=== PATIENT | male | born 1950 | race Caucasian/White ===

== ENCOUNTER 2018-08-25 08:13 | Emergency (ER) | payer MEDICARE ==
--- NOTE | 2018-08-25 08:31 | UC ---
Bite Injury/Animal HPI - HPI Summary HPI Summary: 68 y/o male presents to the urgent care c/o dog bite on the tip of the left index finger since yesterday around 1800pm Pt reports he was taking a walk and He decided to pet a neighbors dog and he bit him on his left index finger. He gave all immunization records to his . Dog is UTD w/ rabies vaccines which expires on 2019. Pt states he irrigated well his finger w/ hydrogen Peroxide and applied triple antibiotic. Pain today is 3/10 and he can move finger w/o any problem. Pt denies fever, SOB, dizziness, chest pain, abdominal pain, N/V/ D. He has not taken his BP medication yet today. - History of Current Complaint Stated Complaint: DOG BITE TO LEFT HAND Time Seen by Provider: 08/25/18 08:28 Hx Obtained From: Patient Severity Currently: Moderate Severity Initially: Moderate Pain Intensity: 3 Pain Scale Used: 0-10 Numeric Onset/Duration: Sudden Onset, Lasting Hours - 14 hrs Type of Bite: Animal - dog Has Animal Been Immunized?: Yes Character: Abrasion/Laceration - tip of left index finger superficial laceration Aggravating Factor(s): Other - touch Alleviating Factor(s): Rest Associated Signs And Symptoms: Positive: Negative. Negative: Fever, Erythema, Drainage, Numbness/Tingling, Limited ROM Hx of Bite: Unprovoked Animal Available for Observation: Yes Animal Control Notified: No - Risk Factors Infection/Sepsis Risk Factors: Negative - Allergies/Home Medications Allergies/Adverse Reactions: Allergies Allergy/AdvReac Type Severity Reaction Status Date / Time No Known Allergies Allergy Verified 08/25/18 08:33 PMH/Surg Hx/FS Hx/Imm Hx Previously Healthy: Yes - Pt denies PMHX - Family History Known Family History: Positive: Hypertension - Social History Occupation: Retired Lives: With Family - Immunization History Hx Tetanus, Diphtheria Vaccination: No - Pt is not UTD w/ Tetanus Review of Systems All Other Systems Reviewed And Are Negative: Yes Constitutional: Positive: Negative Skin: Positive: Other - dog bite in the left index finger Eyes: Positive: Negative ENT: Positive: Negative Respiratory: Positive: Negative Cardiovascular: Positive: Negative Gastrointestinal: Positive: Negative Genitourinary: Positive: Negative Motor: Positive: Negative Neurovascular: Positive: Negative Musculoskeletal: Positive: Other: - left index finger pain s/p dog bite Neurological: Positive: Negative Psychological: Positive: Negative Is Patient Immunocompromised?: No Physical Exam - Summary Physical Exam Summary: Vital Signs Reviewed: Yes General: well appearing, well nourished male in no acute apparent pain distress , sitting comfortably on examining table Eye Exam: Normal Eyes: Positive: Conjunctiva Clear - PERRLA< EOMI, fundi grossly normal ENT: Positive: Normal ENT inspection, Hearing grossly normal, Pharynx normal, TMs normal Neck: Positive: Supple, Nontender, No Lymphadenopathy Respiratory: Positive: Chest non-tender, Lungs clear, Normal breath sounds, No respiratory distress Cardiovascular: Positive: RRR, No Murmur, Pulses Normal, Brisk Capillary Refill Abdomen Description: Positive: Nontender, No Organomegaly, Soft. Negative: CVA Tenderness (R), CVA Tenderness (L) Bowel Sounds: Positive: Present Musculoskeletal: Positive: Strength Intact, ROM Intact, No Edema Neurological: Positive: Alert, Muscle Tone Normal Psychological Exam: Normal Skin: Positive: medial aspect of the tip of the left second finger with a linear superficial laceration about 2.0cm in size s/p dog bite , non bleeding, no foreign body observed. tenderness to palpation, no ecchymosis around finger. FROM of left index finger and hand, sensation intact, capillary refill brisk, and pulses WNL. Triage Information Reviewed: Yes Procedures - Laceration/Wound Repair 1 Location: upper extremity - left index finger Description: Linear Anesthesia: Local - LET, 1.0% - 0.5ml lido sinc ePt is very sesnitive Betadine Prep?: Yes Irrigated w/ Saline (ccs): 1,000 Laceration/Wound Explored: clean, no foreign body removed Closure: Single Layer - loose 4 sutures Suture Type: Nylon - 5.0 Layer Closure?: No Sterile Dressing Applied?: No Bite Injury Course/Dx - Course Course Of Treatment: 68 y/o male presents to the urgent care c/o dog bite on the tip of the left index finger since yesterday around 1800pm Pt reports he was taking a walk and He decided to pet a neighbors dog and he bit him on his left index finger. He gave all immunization records to his . Dog is UTD w/ rabies vaccines which expires on 2019. Pt states he irrigated well his finger w/ hydrogen Peroxide and applied triple antibiotic. Pain today is 3/10 and he can move finger w/o any problem. Pt denies fever, SOB, dizziness, chest pain, abdominal pain, N/V/ D. He has not taken his BP medication yet today. Pt w/ medial aspect of the tip of the left second finger with a linear superficial laceration about 2.0cm in size s/p dog bite , non bleeding, no foreign body observed. tenderness to palpation, no ecchymosis around finger. FROM of left index finger and hand, sensation intact, capillary refill brisk, and pulses WNL on examination. Dog is UTD w/ rabies, no need of Rabies prophylaxis. I discussed Pt's symptoms w/ DR Maya and re recommended extensive wound irrigation and approximate wound laceration and Augmentin PO. LACERATION PROCEDURE NOTE: Copious irrigation was done with saline by the nurse and the wound explored. There was no FB or deep structure injury noted. FROM of left hand and fingers. procedure was explained and consent obtained, Timeout performed. The wound was anesthetized with LET and 0.5ml Lido with good anesthesia obtained. Sterile drape and prep were done. There were 4 loose sutures with 5.0 nylon type of suture. The length of the wound after closure was 2.0cm. No debridement done. Pt tolerated the procedure well without adverse effects. Neurovascular intact and FROM of left index finger. Tdap ordered and applied by nurse. Pt advised to f/u suture removal in 10-12 days and if any signs of infection develop to immediately return to the urgent care of PCP for further management and treatment. Pt's BP is elevated today advised to decrease salt in diet, monitor BP and f/u with PCP for further management. Pt understood and agreed and left the clinic ambulating A&Ox3. - Differential Dx/Diagnosis Differential Diagnosis/HQI/PQRI: Cellulitis, Laceration, Puncture, Rabies Exposure, Superficial Infection, Deep Space Infection, Tenosynovitis Provider Diagnosis: Dog bite of index finger, Uncontrolled hypertension Discharge - Sign-Out/Discharge Documenting (check all that apply): Patient Departure - d/C home All imaging exams completed and their final reports reviewed: No Studies - Discharge Plan Condition: Stable Disposition: HOME Prescriptions: Amoxicillin/Clavulanate TAB* [Augmentin TAB 875*] 875 mg PO BID #20 tab Bacitracin OINTMENT* 1 applic TOPICAL BID #1 tube Patient Education Materials: Animal Bite (ED) Referrals: Shai Palomares, [Primary Care Provider] - 1 Week Additional Instructions: 1-Please take Augmentin PO as directed full course of treatment. apply Bacitracin topical antibiotic over the wound. Keep wound clean and dry 2- F/u suture removal in 10-12 days days days w/ your PCP or here at the urgent care. 3-Take Ibuprofen or Tylenol PO q6-8hrs prn for pain or swelling. Avoid too much flexion of your finger 4- If you develop fever or redness around your finger despite the antibiotic please go to the ER immediately or return to the Urgent care. 5- The Health Department will be notified of your dog bite, You will receive a call from them. since dog is UTD w/ Rabies your don't need prophylactic treatment. 6- Your BP is elevated today. please decrease salt in your diet, monitor BP and if it continues to be elevated please f/u with your PCP for further management. - Billing Disposition and Condition Condition: STABLE Disposition: Home
[2018-08-25 08:32] VITALS: BP 161/92
[2018-08-25] MEDS ORDERED: Lidocaine 1%* 5 ML VIAL INJ ONE (08:54)
[2018-08-25] MEDS ORDERED: Tetan/Diph/Pertus SYR(Tdap)* 0.5 ML SYR(BOOSTRIX) use SYR IM ONE (08:54)
--- NOTE | 2018-08-25 09:12 | CONSULT ---
Consult Consult: I performed a history and physical on this patient. I supervised the care of the physician therapist's assistant. History: Bit by a dog in the left hand yesterday at 6 PM. Wound to the left index finger. Physical exam: Dogbite laceration wound to the tip of the left index finger. No active bleeding. No swelling of the digit proximally. Plan: Rabies evaluation, clean wound extensively and loose approximation sutures. Augmentin.
[2018-08-25] MEDS ORDERED: Lidocaine/Epineph/Tetraca (NF) 4 ML BTL TOPICAL ONE (09:13)
[2018-08-25] MEDS ORDERED: Lidocaine/Epineph/Tetraca GEL* 3 ML GEL IN SYR TOPICAL ONE (09:15)
== END 2018-08-25 10:20 | disposition home or self-care (01) ==
LOC: UCEAST 08:13
DX: S61.251A Open bite of left index finger without damage to nail, initial encounter (principal); W54.0XXA Bitten by dog, initial encounter; Y92.9 Unspecified place or not applicable; I10 Essential (primary) hypertension
CPT/HCPCS: 12001; 90715; 99212; A9270-GY; G0463

== ENCOUNTER 2018-09-05 09:56 | Emergency (ER) | payer MEDICARE ==
--- NOTE | 2018-09-05 10:00 | UC ---
Skin Complaint HPI - HPI Summary HPI Summary: 68 yo male presents for suture removal. He had 4 sutures placed s/p dog bite. Has had no issues such as drainage, pain, swelling. Denies fever. States one suture fell out a few days ago - History of Current Complaint Time Seen by Provider: 09/05/18 09:59 Stated Complaint: SUTURE REMOVAL Hx Obtained From: Patient - Allergy/Home Medications Allergies/Adverse Reactions: Allergies Allergy/AdvReac Type Severity Reaction Status Date / Time No Known Allergies Allergy Verified 09/05/18 10:10 PMH/Surg Hx/FS Hx/Imm Hx - Additional Past Medical History Additional PMH: None - Surgical History Surgical History: None - Family History Known Family History: Positive: Hypertension - Social History Lives: With Family Alcohol Use: None Substance Use Type: None Smoking Status (MU): Former Smoker When Did the Patient Quit Smoking/Using Tobacco: 30 years ago - Immunization History Hx Tetanus, Diphtheria Vaccination: No - Pt is not UTD w/ Tetanus Review of Systems All Other Systems Reviewed And Are Negative: Yes Constitutional: Positive: Negative Skin: Positive: Other - sutures left finger Respiratory: Positive: Negative Cardiovascular: Positive: Negative Musculoskeletal: Positive: Negative Neurological: Positive: Negative Psychological: Positive: Negative Physical Exam - Summary Physical Exam Summary: GENERAL: NAD. WDWN. No pain distress. SKIN: Left index finger tip with [address] No erythema, edema, or drainage. CHEST: No accessory muscle use. Breathing comfortably and in no distress. CV: Pulses intact. Cap refill <2seconds NEURO: Alert. PSYCH: Age appropriate behavior. Triage Information Reviewed: Yes Vital Signs: Vital Signs: Temp Pulse Resp BP Pulse Ox 97.1 F 65 20 127/82 97 09/05/18 10:05 09/05/18 10:05 09/05/18 10:05 09/05/18 10:05 09/05/18 10:05 Vital Signs Reviewed: Yes Course/Dx - Course Course Of Treatment: Site well healed and approximated. 3 sutures removed without difficulty. - Diagnoses Provider Diagnosis: Visit for suture removal Discharge - Sign-Out/Discharge Documenting (check all that apply): Patient Departure All imaging exams completed and their final reports reviewed: No Studies - Discharge Plan Condition: Stable Disposition: HOME Patient Education Materials: Stitches Removal (ED) Referrals: Charlene Puente MD [Primary Care Provider] - Additional Instructions: If you develop a fever, shortness of breath, chest pain, new or worsening symptoms - please call your PCP or go to the ED immediately. Change the band-aid daily until well healed (likely 2-3 more days) - Billing Disposition and Condition Condition: STABLE Disposition: Home - Attestation Statements Provider Attestation: I was available for consult. This patient was seen by the ERMELINDA. The patient was not presented to, seen by, or examined by me. -Brock
[2018-09-05 10:09] VITALS: BP 127/82
== END 2018-09-05 10:20 | disposition home or self-care (01) ==
LOC: UCEAST 09:56
DX: Z48.02 Encounter for removal of sutures (principal); Z87.891 Personal history of nicotine dependence